=== PATIENT | female | born 2000 | race American Indian/Alaskan Native ===

== ENCOUNTER 2020-01-23 19:38 | Emergency (ER) | payer MEDICAID ==
[2020-01-23 21:02] VITALS: BP 128/72
== END 2020-01-23 20:40 | disposition left against medical advice (07) ==
LOC: ED 19:38
DX: R05 Cough (principal); J02.9 Acute pharyngitis, unspecified; Z53.21 Procedure and treatment not carried out due to patient leaving prior to being seen by health care provider